=== PATIENT | female | born 1980 | race Caucasian/White ===

== ENCOUNTER 2021-01-28 23:25 | Inpatient (IN) | payer MEDICAID ==
[~2021-01-28] VITALS: Ht 157.5 cm; Wt 106.6 kg
[2021-01-29] MEDS ORDERED: METHYLERGONOVINE MALEATE 0.2 MG/ML IM PRN (00:45)
[2021-01-29] MEDS ORDERED: CARBOPROST TROMETHAMINE 250 MCG/ML AMPUL IM PRN (00:45)
[2021-01-29] MEDS ORDERED: LACTATED RINGERS 1,000 ML IV SCH (00:45)
[2021-01-29] MEDS ORDERED: NALOXONE HCL 0.4 MG/ML 1ML VIAL IM PRN (00:45)
[2021-01-29] MEDS ORDERED: TERBUTALINE SULFATE 1MG/ML VIAL SUBCUT NR (01:30)
[2021-01-29 02:12] LABS: CLARITY URINE CLOUDY (CLEAR); COLOR URINE YELLOW (YELLOW); KETONES URINE 1+ (NEGATIVE); LEUKOCYTE ESTERASE URINE 2+ (NEGATIVE); NITRITE URINE NEGATIVE (NEGATIVE); OCCULT BLOOD URINE 3+ (NEGATIVE); PH URINE 6.5 (4.5-8.0); PROTEIN URINE 1+ (NEGATIVE); SPECIFIC GRAVITY URINE 1.023 (1.005-1.030)
[2021-01-29 02:16] LABS: CHLORIDE 110 mEq/L (98-107)
[2021-01-29 02:21] LABS: *AMPHETAMINES SCREEN URINE NEGATIVE (NEGATIVE)
[2021-01-29 02:22] LABS: *BARBITURATES SCREEN URINE NEGATIVE (NEGATIVE); *BENZODIAZEPINES SCREEN URINE NEGATIVE (NEGATIVE); *COCAINE SCREEN URINE NEGATIVE (NEGATIVE); METHADONE URINE SCREEN NEGATIVE (NEGATIVE); OPIATES URINE SCREEN NEGATIVE (NEGATIVE); PHENCYCLIDINE URINE SCREEN NEGATIVE (NEGATIVE)
[2021-01-29 02:24] LABS: CANNABINOID URINE SCREEN NEGATIVE (NEGATIVE)
[2021-01-29 02:31] LABS: FIBRINOGEN < 428 mg/dL (200-400); INR 0.9; PARTIAL THROMBOPLASTIN TIME 29.9 sec (23.4-31.0); PROTHROMBIN TIME 10.2 sec (9.6-11.0)
[2021-01-29 02:55] LABS: HEPATITIS B SURFACE ANTIGEN NEGATIVE
[2021-01-29] MEDS: LACTATED RINGERS 1,000 ML IV SCH ×3 (05:06→11:36)
[2021-01-29 06:23] LABS: BASOPHILS % 1.4 % (0.0-2.0); EOSINOPHILS % 0.8 % (0.0-5.0); HEMATOCRIT. 32.7 % (36.0-48.0); LYMPHOCYTES % 29.2 % (20.0-50.0); MEAN CORPUSCULAR HEMOGLOBIN 30.9 pg (28.0-32.0); MEAN PLATELET VOLUME 11.8 fl (7.4-10.4); NEUTROPHILS % 63.6 % (40.0-76.0); PLATELET 140 x1000/uL (130-400); RED BLOOD CELL COUNT 3.56 mill/uL (4.2-5.4)
[2021-01-29] MEDS ORDERED: FENTANYL CITRATE/PF 50MCG/ML 2ML VIAL ONE (07:18)
[2021-01-29] MEDS ORDERED: MORPHINE SULFATE/PF 1MG/ML 10ML AMP ONE (07:18)
[2021-01-29] MEDS ORDERED: CEFAZOLIN SODIUM 1000MG/VIAL ONE (07:20)
[2021-01-29] MEDS ORDERED: PREN-176 MT (07:23)
[2021-01-29] MEDS ORDERED: ALBU05 NEB (07:26)
[2021-01-29] MEDS ORDERED: BUTORPHANOL TARTRATE 2 MG/ML VIAL IM PRN (09:15)
[2021-01-29] MEDS ORDERED: DIPHENHYDRAMINE 50MG/ML VIAL IV PRN (09:15)
[2021-01-29] MEDS ORDERED: HYDROMORPHONE HCL/PF 2MG/ML CPJ IV PRN (09:15)
[2021-01-29] MEDS ORDERED: MEPERIDINE HCL/PF 25MG/ML CPJ IV PRN (09:15)
[2021-01-29] MEDS ORDERED: ONDANSETRON HCL 4MG/2ML INJ IV PRN ×2 (09:15→14:30)
[2021-01-29] MEDS ORDERED: LABETALOL 5MG/ML SYR 20 MG/4 ML SYRINGE IV PRN (09:15)
[2021-01-29] MEDS ORDERED: PHENYLEPHRINE HCL 10 MG/ML 1ML (IV VIAL) IV ONE (13:54)
[2021-01-29] MEDS ORDERED: EPHEDRINE SULFATE 50MG/ML VIAL ONE (14:29)
[2021-01-29] MEDS ORDERED: SODIUM CHLORIDE 0.9% 10ML VIAL ONE (14:29)
[2021-01-29] MEDS ORDERED: OXYTOCIN 10 UNITS/ML 1ML ONE (14:29)
[2021-01-29] MEDS ORDERED: RHO(D) IMMUNE GLOBULIN 300 MCG/SYR IM PRN (14:30)
[2021-01-29] MEDS ORDERED: BISACODYL 10MG SUPP PR PRN (14:30)
[2021-01-29] MEDS ORDERED: HEMORRHOIDAL SUPP PR PRN (14:30)
[2021-01-29] MEDS ORDERED: HYDROCODONE/ACETAMINOPHEN 5/325MG TABLET PO PRN (14:30)
[2021-01-29] MEDS ORDERED: DIPHENHYDRAMINE 25MG CAPSULE PO PRN (14:30)
[2021-01-29] MEDS ORDERED: LANOLIN OINT 7GM TUBE TOP PRN (14:30)
[2021-01-29] MEDS: DEXT 5%/LR + PITOCIN 20UNITS/L 1,000 ML IV SCH ×2 (15:25→23:52)
[2021-01-29 16:30] VITALS: BP 114/59
[2021-01-29 17:30] VITALS: BP 113/63
[2021-01-29] MEDS: KETOROLAC 30MG/ML VIAL IV PRN (19:58)
[2021-01-29 20:00] VITALS: BP 128/71
[2021-01-29] MEDS: SIMETHICONE 80MG TABLET CHEW PO SCH (21:52)
[2021-01-29] MEDS: DOCUSATE SODIUM 100MG CAPSULE PO SCH (21:53)
[2021-01-30] VITALS: BP 129/70
[2021-01-30] MEDS: KETOROLAC 30MG/ML VIAL IV PRN ×2 (02:02→14:21)
[2021-01-30 04:00] VITALS: BP 98/55
[2021-01-30 05:56] LABS: BASOPHILS % 0.3 % (0.0-2.0); EOSINOPHILS % 0.2 % (0.0-5.0); HEMATOCRIT. 30.9 % (36.0-48.0); HEMOGLOBIN. 10.1 g/dL (12.0-16.0); MEAN CORPUSCULAR HEMOGLOBIN 30.6 pg (28.0-32.0); MEAN CORPUSCULAR VOLUME 93.3 fL (81.0-99.0); MEAN PLATELET VOLUME 10.6 fl (7.4-10.4); MONOCYTES % 4.6 % (2.0-8.0); NEUTROPHILS % 75.9 % (40.0-76.0); PLATELET 122 x1000/uL (130-400); RED BLOOD CELL COUNT 3.31 mill/uL (4.2-5.4); RED CELL DISTRIBUTION WIDTH 15.4 % (11.6-14.6)
[2021-01-30] MEDS ORDERED: INFLUENZA VACCINE 05/PF 0.5 ML SYRINGE IM ONE (07:00)
[2021-01-30] MEDS: DEXT 5%/LR + PITOCIN 20UNITS/L 1,000 ML IV SCH (07:01)
[2021-01-30] MEDS: FERROUS SULFATE 325MG TABLET PO SCH ×3 (07:30→18:05)
[2021-01-30 08:00] VITALS: BP 100/57
[2021-01-30] MEDS ORDERED: TETANUS, DIPHTHERIA, PERTUSSIS VAC/PF 0.5ML (>10YR OLD) IM ONE (10:00)
[2021-01-30 15:24] VITALS: BP 105/60
[2021-01-30] MEDS: ACETAMINOPHEN WITH CODEINE 300/30MG TABLET PO PRN (18:06)
[2021-01-30] MEDS: CEPHALEXIN 250MG CAPSULE PO SCH (19:06)
[2021-01-30 20:01] VITALS: BP 115/77
[2021-01-31] MEDS: ACETAMINOPHEN WITH CODEINE 300/30MG TABLET PO PRN ×4 (00:20→21:30)
[2021-01-31] MEDS: DOCUSATE SODIUM 100MG CAPSULE PO SCH ×2 (00:20→21:29)
[2021-01-31] MEDS: SIMETHICONE 80MG TABLET CHEW PO SCH ×5 (00:20→21:29)
[2021-01-31] MEDS: CEPHALEXIN 250MG CAPSULE PO SCH ×4 (00:21→17:57)
[2021-01-31 00:41] VITALS: BP 137/76
[2021-01-31 04:35] VITALS: BP 136/72
[2021-01-31 07:52] VITALS: BP 124/71
[2021-01-31] MEDS: FERROUS SULFATE 325MG TABLET PO SCH ×3 (09:16→17:56)
[2021-01-31] MEDS ORDERED: INFLUENZA VACCINE 05/PF 0.5 ML SYRINGE IM ONE (11:00)
[2021-01-31 16:14] VITALS: BP 122/77
[2021-01-31] MEDS: IBUPROFEN 400MG TABLET PO PRN (17:56)
[2021-01-31 20:08] VITALS: BP 134/67
[2021-01-31 23:38] VITALS: BP 149/78
[2021-02-01] MEDS: CEPHALEXIN 250MG CAPSULE PO SCH ×2 (00:19→06:09)
[2021-02-01] MEDS: IBUPROFEN 400MG TABLET PO PRN ×2 (00:19→06:32)
[2021-02-01 04:42] VITALS: BP 134/77
[2021-02-01] MEDS ORDERED: IBUP-2028 PO (07:23)
[2021-02-01] MEDS: FERROUS SULFATE 325MG TABLET PO SCH (08:03)
[2021-02-01] MEDS: SIMETHICONE 80MG TABLET CHEW PO SCH (08:03)
[2021-02-01 08:19] VITALS: BP 101/62
== END 2021-02-01 11:05 | disposition home or self-care (01) | DRG 540 ==
LOC: ER 23:25 → 8 EST LDRP 23:44 → OBSVTOIN 23:44 → 8EST 01-29 16:30
PROVIDERS: ADMIT Obstetrics & Gynecology; ATTEND Obstetrics & Gynecology
PROC: 10D00Z1 Extraction of Products of Conception, Low, Open Approach (ICD-10-PCS; principal; 2021-01-29)
PROC: 3E0234Z Introduction of Serum, Toxoid and Vaccine into Muscle, Percutaneous Approach (ICD-10-PCS; 2021-01-30)
DX: O34.211 Maternal care for low transverse scar from previous cesarean delivery (principal); O90.81 Anemia of the puerperium; Z37.0 Single live birth; Z3A.41 41 weeks gestation of pregnancy; Z23 Encounter for immunization
CPT/HCPCS: 36415; 76805; 76818; 80053; 80305; 81003; 84550; 85025; 85384; 86592; 86703; 86762; 86850; 86886; 86900; 86920; 87340; 88307; 90384; 90686; 90715; 99281; 99285; G0378; J0690; J1885; J2274; J2370; J2405; J2590; J3010; J3105; J3490; J7120; A4315

== ENCOUNTER 2021-02-06 09:18 | Emergency (ER) | payer MEDICAID ==
[~2021-02-06] VITALS: Ht 154.9 cm; Wt 100.0 kg
[~2021-02-06 09:18] MED LIST: ALBU05 NEB; IBUP-2028 PO; PREN-176 MT
[2021-02-06] MEDS ORDERED: SODIUM CHLORIDE 0.9% 1,000 ML IV ONE (10:30)
[2021-02-06 11:15] LABS: BASOPHILS % 0.9 % (0.0-2.0); EOSINOPHILS % 2.2 % (0.0-5.0); HEMATOCRIT. 34.4 % (36.0-48.0); HEMOGLOBIN. 11.3 g/dL (12.0-16.0); LYMPHOCYTES % 28.4 % (20.0-50.0); MEAN PLATELET VOLUME 8.9 fl (7.4-10.4); MONOCYTES % 6.2 % (2.0-8.0); NEUTROPHILS % 62.3 % (40.0-76.0); PLATELET 301 x1000/uL (130-400); RED BLOOD CELL COUNT 3.78 mill/uL (4.2-5.4); RED CELL DISTRIBUTION WIDTH 14.7 % (11.6-14.6)
[2021-02-06 11:16] LABS: CLARITY URINE CLEAR (CLEAR); COLOR URINE YELLOW (YELLOW); KETONES URINE NEGATIVE (NEGATIVE); LEUKOCYTE ESTERASE URINE 1+ (NEGATIVE); NITRITE URINE NEGATIVE (NEGATIVE); OCCULT BLOOD URINE 3+ (NEGATIVE); PH URINE 6.5 (4.5-8.0); PROTEIN URINE NEGATIVE (NEGATIVE); SPECIFIC GRAVITY URINE 1.007 (1.005-1.030); UROBILINOGEN URINE 0.2 E.U./dL (0.2-1.0)
[2021-02-06 11:27] LABS: CHLORIDE 111 mEq/L (98-107)
[2021-02-06 11:39] LABS: B-HCG QUANTITATIVE 48 mIU/mL (<3)
[2021-02-06] MEDS: LABETALOL 5MG/ML SYR 20 MG/4 ML SYRINGE IV ONE (13:00)
[2021-02-06] MEDS: LABETALOL HCL 100MG TABLET PO ONE ×2 (14:00→14:50)
[2021-02-06] MEDS ORDERED: ACETAMINOPHEN 325MG TABLET PO ONE (14:30)
[2021-02-06] MEDS ORDERED: LABE100T5 MT (15:48)
[2021-02-06] MEDS ORDERED: NITR-87 MT (15:48)
[2021-02-06 18:23] VITALS: BP 146/68
== END 2021-02-06 18:25 | disposition home or self-care (01) ==
LOC: ER 09:18
DX: O90.2 Hematoma of obstetric wound (principal); O16.5 Unspecified maternal hypertension, complicating the puerperium; O90.89 Other complications of the puerperium, not elsewhere classified; R11.0 Nausea; R19.7 Diarrhea, unspecified; R16.0 Hepatomegaly, not elsewhere classified
CPT/HCPCS: 36415; 76705; 76857; 80053; 81003; 83690; 84702; 85025; 87070; 87077; 87186; 87205; 96360; 99284; J3490; J7030; Z7610; 96361